=== PATIENT | female | born 1940 | race Caucasian/White ===

== ENCOUNTER 2017-02-12 10:35 | Inpatient (IN) | payer OTHER ==
[~2017-02-12] VITALS: Ht 147.3 cm; Wt 59.3 kg
[2017-02-12] MEDS ORDERED: ALBUTEROL/IPRATROPIUM (NEB) 3 ML AMP HHN STA (10:54)
[2017-02-12] MEDS ORDERED: predniSONE 20 MG TAB PO ONE (11:00)
--- NOTE | 2017-02-12 11:06 | ERA ---
ER Documentation Chief Complaint Date/Time DATE: 02/12/17 TIME: 11:05 Chief Complaint COUGH, SOB, PT ON ABX TREATMENT (RIVER METCALF PA-C) HPI Patient is a 76-year-old female presenting with her daughter who is a behavioral school counselors and seems reliable. Patient complains of a cough starting last week. Patient has seen a urgent care and was prescribed azithromycin Dosepak. Antibiotics last dose was today. Patient still complains of mild cough. Patient chief complaint is shortness of breath. Patient has a history of asthma. Patient has used albuterol 2 times a day once at 2:58 in the morning and the second time with albuterol use was at approximately 8 AM. Patient had temporary and moderate relief of symptoms. Patient has not done anything else relieve symptoms. Patient has never had an asthma exacerbation to this extent. Denies fever, sputum production, headache, pharyngitis, swelling, hot potato type voice, dysphasia, dysgeusia, dysarthria or chest pain. (RIVER METCALF PA-C) ROS All systems reviewed and are negative except as per history of present illness. (RIVER METCALF PA-C) Allergies Allergies: Coded Allergies: No Known Allergy (Unverified , 02/12/17) PMhx/Soc Medical and Surgical Hx: pt denies Medical Hx, pt denies Surgical Hx History of Surgery: No Anesthesia Reaction: No Hx Neurological Disorder: No Hx Respiratory Disorders: No Hx Cardiac Disorders: No Hx Psychiatric Problems: No Hx Miscellaneous Medical Probl: No Hx Alcohol Use: No Hx Substance Use: No Hx Tobacco Use: No Smoking Status: Never smoker (RIVER METCALF PA-C) Physical Exam Vitals Vital Signs Date Time Temp Pulse Resp B/P Pulse Ox O2 Delivery O2 Flow Rate FiO2 02/12/17 16:09 103 30 115/64 100 Room Air 02/12/17 15:23 98 21 96 21 02/12/17 13:19 105 160/82 100 Nasal Cannula 2.0 02/12/17 13:19 Nasal Cannula 2.0 02/12/17 13:19 Nasal Cannula 2 02/12/17 12:21 93 20 96 21 02/12/17 11:35 89 22 97 21 02/12/17 11:20 88 23 96 21 02/12/17 10:37 98.4 106 18 146/70 97 (CINDY,RAMOS DO) Physical Exam Const: 76-year-old appropriate appearing female presenting with her daughter who is the behavioral school counselors. Head: Atraumatic Eyes: Normal Conjunctiva ENT: Normal External Ears, Nose and Mouth. Neck: Full range of motion..~ No meningismus. Resp: Wheezing and expiratory crackles and all lung serrano bilaterally with predominance and upper lung serrano. Cardio: Regular rate and rhythm, no murmurs Abd: Soft, non tender, non distended. Normal bowel sounds Skin: No petechiae or rashes Back: No midline or flank tenderness Ext: No cyanosis, or edema Neur: Awake and alert Psych: Normal Mood and Affect (RIVER METCALF PA-C) Result Diagram: 02/12/17 1340 02/12/17 1340 Results 24 hrs Laboratory Tests Test 02/12/17 13:40 White Blood Count 10.610^3/ul Red Blood Count 4.6710^6/ul Hemoglobin 14.0g/dl Hematocrit 43.2% Mean Corpuscular Volume 92.5fl Mean Corpuscular Hemoglobin 30.0pg Mean Corpuscular Hemoglobin Concent 32.4g/dl Red Cell Distribution Width 13.1% Platelet Count 66126^3/UL Mean Platelet Volume 11.5fl Neutrophils % 55.3% Lymphocytes % 20.1% Monocytes % 3.6% Eosinophils % 19.4% Basophils % 1.2% Nucleated Red Blood Cells % 0.0/100WBC Neutrophils # 5.810^3/ul Lymphocytes # 2.110^3/ul Monocytes # 0.410^3/ul Eosinophils # 2.110^3/ul Basophils # 0.110^3/ul Nucleated Red Blood Cells # 0.010^3/ul Sodium Level 142mmol/L Potassium Level 4.6mmol/L Chloride Level 101mmol/L Carbon Dioxide Level 23mmol/L Anion Gap 23 Blood Urea Nitrogen 13mg/dl Creatinine 0.73mg/dl Glucose Level 138mg/dl Calcium Level 9.7mg/dl Total Bilirubin 0.4mg/dl Direct Bilirubin 0.00mg/dl Indirect Bilirubin 0.4mg/dl Aspartate Amino Transf (AST/SGOT) 43IU/L Alanine Aminotransferase (ALT/SGPT) 36IU/L Alkaline Phosphatase 99IU/L Troponin I < 0.012ng/ml Total Protein 8.2g/dl Albumin 4.8g/dl Globulin 3.40g/dl Albumin/Globulin Ratio 1.41 Current Medications Medications (Trade) Dose Ordered Sig/Bonnie Route PRN Reason Start Time Stop Time Status Last Admin Dose Admin Prednisone (Prednisone) 40 mg ONCE ONCE PO 02/12/17 11:00 02/12/17 11:06 DC 02/12/17 11:15 Albuterol/ Ipratropium (Duoneb) 3 ml ONCE STAT HHN 02/12/17 10:54 02/12/17 11:06 DC 02/12/17 11:18 Albuterol (Proventil 0.083% (Neb)) 2.5 mg STK-MED ONCE .ROUTE 02/12/17 11:27 02/12/17 11:28 DC Albuterol (Proventil 0.5% (Neb)) 10 mg ONCE STAT INH 02/12/17 11:28 02/12/17 11:30 DC 02/12/17 11:34 Albuterol 10 mg 10 mg ONCE STAT INH 02/12/17 12:22 02/12/17 12:24 DC 02/12/17 12:25 Sodium Chloride (NS) 1,000 ml @ 1,000 mls/hr Q1H ONCE IV 02/12/17 13:30 02/12/17 14:29 DC 02/12/17 13:53 Methylprednisolone Sodium Succinate 125 mg 125 mg ONCE STAT IV 02/12/17 13:24 02/12/17 13:25 DC 02/12/17 13:52 Magnesium Sulfate/ Dextrose (Magnesium Sulfate 1 Gm/D5W) 100 ml @ 100 mls/hr ONCE ONCE IVPB 02/12/17 14:00 02/12/17 14:59 DC 02/12/17 13:53 Albuterol (Proventil 0.5% (Neb)) 10 mg ONCE STAT NEB 02/12/17 14:48 02/12/17 14:50 DC 02/12/17 15:23 Ipratropium [place] 0.5 mg 0.5 mg ONCE STAT NEB 02/12/17 14:48 02/12/17 14:50 DC 02/12/17 15:23 Sodium Chloride (NS) 1,000 ml @ 80 mls/hr [id number] IV 02/12/17 16:27 02/13/17 04:56 Ondansetron HCl (Zofran Inj) 4 mg BRIDGE ORDER PRN IV NAUSEA AND/OR VOMITING 02/12/17 16:30 02/13/17 16:29 Acetaminophen (Tylenol Tab) 650 mg ER BRIDGE PRN PO MILD PAIN/FEVER 02/12/17 16:30 02/13/17 16:29 (RAMOS WHITE DO) Procedures/MDM Patient is a 76-year-old female with history of asthma with cough and shortness of breath. Patient says she has asthma attack has never had asthma daily as before. Patient's vitals are stable and the airway is open. Patient's able to speak without much distress. There are no intercostal retractions at this time. Patient has used albuterol twice today without sustained relief. We will go ahead and treat the patient with 40 mg of oral prednisone and a treatment of oxygen/albuterol/ipratropium. Will obtain an x-ray for possible infectious cause of exacerbation. will reevaluate patient once treatment is completed. Chest x-ray showed no cardio or pulmonary acute pathology. I do not suspect a bacterial infection of the lungs or airway tract at this time. Upon reevaluation the patient's pulmonary status by physical exam has not improved. A second administration of nebulized albuterol and oxygen was ordered and administered. Upon subsequent evaluation patient's pulmonary status began has not improved with examination. Have talked to Dr. Rea he agrees that a workup and possible admission is the next step. We will go ahead and draw a CBC, CMP and a urinalysis. We will present the patient for possible admission. (RIVER METCALF PA-C) Departure Condition: Stable RIVER METCALF PA-C Feb 12, 2017 11:06 RAMOS WHITE DO Feb 12, 2017 16:28
[2017-02-12] MEDS ORDERED: ALBUTEROL 0.083% (NEB) 2.5 MG/3 ML AMP ONE (11:27)
[2017-02-12] MEDS ORDERED: ALBUTEROL 0.5% (NEB) 2.5 MG/0.5 ML AMP INH STA ×2 (11:28→12:22)
--- NOTE | 2017-02-12 11:31 | RADRPT ---
PROCEDURE: XR Chest. CLINICAL INDICATION: Asthma TECHNIQUE: AP view of the chest was performed. COMPARISON: None. FINDINGS: The lungs are clear. The lung volumes are normal. The heart size is normal. The osseous structure s are intact. IMPRESSION: No radiographic evidence for acute cardiopulmonary disease. RPTAT: QQ .Mabel Scherer MD, Date Time Electronically viewed and signed by .Mabel Scherer MD, on 02/12/2017 11:31 .M/
[2017-02-12] MEDS ORDERED: METHYLPREDNISOLONE 125 MG INJ IV STA (13:24)
[2017-02-12] MEDS ORDERED: SOD CHLORIDE 0.9% 1,000 ML IV ONE (13:30)
[2017-02-12 13:52] LABS: ADD SCAN DIFF NO
[2017-02-12 13:57] LABS: ABNORMAL IP MESSAGE 1; BASOPHIL # 0.1 10^3/ul (0.0-0.1); BASOPHILS % 1.2 % (0.0-2.0); EOSINOPHILS # 2.1 10^3/ul (0.0-0.5); EOSINOPHILS % 19.4 % (0.0-7.0); HEMATOCRIT 43.2 % (37.0-47.0); LYMPHOCYTES # 2.1 10^3/ul (0.8-2.9); LYMPHOCYTES % 20.1 % (15.0-51.0); MEAN CORPUSCULAR HGB CONC 32.4 g/dl (32.0-37.0); MEAN CORPUSCULAR VOLUME 92.5 fl (82.0-101.0); MEAN PLATELET VOLUME 11.5 fl (7.4-10.4); MONOCYTE # 0.4 10^3/ul (0.3-0.9); MONOCYTES % 3.6 % (0.0-11.0); NEUTROPHIL # 5.8 10^3/ul (1.6-7.5); NEUTROPHILS % 55.3 % (39.0-77.0); PLATELET COUNT 214 10^3/UL (140-415); RED BLOOD COUNT 4.67 10^6/ul (4.20-5.40); RED CELL DISTRIBUTION WIDTH 13.1 % (11.5-14.5); WHITE BLOOD COUNT 10.6 10^3/ul (4.8-10.8)
[2017-02-12] MEDS ORDERED: MAGNESIUM SULFATE 1 GM/D5W 100 ML IVPB ONE (14:00)
[2017-02-12] MEDS ORDERED: IPRATROPIUM (NEB) 0.5 MG/2.5 ML AMP NEB STA (14:48)
[2017-02-12] MEDS ORDERED: ALBUTEROL 0.5% (NEB) 2.5 MG/0.5 ML AMP NEB STA (14:48)
[2017-02-12 15:08] LABS: ALBUMIN 4.8 g/dl (3.3-4.9)
[2017-02-12 15:09] LABS: POTASSIUM 4.6 mmol/L (3.5-5.1)
[2017-02-12 15:11] LABS: ALBUMIN/GLOBULIN RATIO 1.41; BILIRUBIN,INDIRECT 0.4 mg/dl (0-1.1); BILIRUBIN,TOTAL 0.4 mg/dl (0.2-1.3); CREATININE 0.73 mg/dl (0.44-1.00); TOTAL PROTEIN 8.2 g/dl (6.1-8.1)
[2017-02-12 15:12] LABS: CALCIUM 9.7 mg/dl (8.4-10.2)
[2017-02-12] MEDS ORDERED: SOD CHLORIDE 0.9% 1,000 ML IV SCH (16:27)
[2017-02-12] MEDS ORDERED: ONDANSETRON 4 MG INJ IV PRN ×2 (16:30→17:00)
[2017-02-12] MEDS ORDERED: ACETAMINOPHEN 325 MG TAB PO PRN ×2 (16:30→17:00)
--- NOTE | 2017-02-12 16:32 | ERA ---
ER Documentation Chief Complaint Date/Time DATE: 02/12/17 TIME: 16:30 Chief Complaint COUGH, SOB, PT ON ABX TREATMENT HPI This is a 76-year-old female presents to the emergency room for evaluation of a cough and shortness of breath. This patient did see her primary care physician who prescribed her an unknown antibiotic. She does have an inhaler at home and states that last night her shortness of breath got worse. She denies any fevers or chills associated with this and came to the ER for evaluation. She is denying any relieving factors for her symptoms. ROS All systems reviewed and are negative except as per history of present illness. Allergies Allergies: Coded Allergies: No Known Allergy (Unverified , 02/12/17) PMhx/Soc Medical and Surgical Hx: pt denies Medical Hx, pt denies Surgical Hx History of Surgery: No Anesthesia Reaction: No Hx Neurological Disorder: No Hx Respiratory Disorders: No Hx Cardiac Disorders: No Hx Psychiatric Problems: No Hx Miscellaneous Medical Probl: No Hx Alcohol Use: No Hx Substance Use: No Hx Tobacco Use: No Smoking Status: Never smoker Physical Exam Vitals Vital Signs Date Time Temp Pulse Resp B/P Pulse Ox O2 Delivery O2 Flow Rate FiO2 02/12/17 16:09 103 30 115/64 100 Room Air 02/12/17 15:23 98 21 96 21 02/12/17 13:19 105 160/82 100 Nasal Cannula 2.0 02/12/17 13:19 Nasal Cannula 2.0 02/12/17 13:19 Nasal Cannula 2 02/12/17 12:21 93 20 96 21 02/12/17 11:35 89 22 97 21 02/12/17 11:20 88 23 96 21 02/12/17 10:37 98.4 106 18 146/70 97 Physical Exam INITIAL VITAL SIGNS: Reviewed by me GENERAL: The patient is well developed and appropriate for usual state of health in no apparent distress HEENT: Pupils equal, round, and reactive to light. EOMI. There is no scleral icterus. NECK: C-spine is soft and supple, there is no meningismus. There is no cervical lymphadenopathy. LUNGS: Diffuse wheezing auscultated in upper and lower lobes HEART: Tachycardic, no murmurs, clicks, rubs or gallops. ABDOMEN: Subcostal retractions, soft, non-tender, non-distended. There are bowel sounds in all four quadrants. No rebound or guarding. EXTREMITIES: There is no peripheral cyanosis or edema. No focal swelling or erythema. NEUROLOGICAL: The patient moves all four extremities with 5/5 strength. Cranial nerves II - XII are intact. Normal gait. Alert and oriented SKIN: There is no apparent rash or petechiae. HEME/LYMPHATIC: There is no evidence of excessive bruising or lymphedema. PSYCHIATRIC: The patient does not appear anxious or depressed. Result Diagram: 02/12/17 1340 02/12/17 1340 Results 24 hrs Laboratory Tests Test 02/12/17 13:40 White Blood Count 10.610^3/ul Red Blood Count 4.6710^6/ul Hemoglobin 14.0g/dl Hematocrit 43.2% Mean Corpuscular Volume 92.5fl Mean Corpuscular Hemoglobin 30.0pg Mean Corpuscular Hemoglobin Concent 32.4g/dl Red Cell Distribution Width 13.1% Platelet Count 16473^3/UL Mean Platelet Volume 11.5fl Neutrophils % 55.3% Lymphocytes % 20.1% Monocytes % 3.6% Eosinophils % 19.4% Basophils % 1.2% Nucleated Red Blood Cells % 0.0/100WBC Neutrophils # 5.810^3/ul Lymphocytes # 2.110^3/ul Monocytes # 0.410^3/ul Eosinophils # 2.110^3/ul Basophils # 0.110^3/ul Nucleated Red Blood Cells # 0.010^3/ul Sodium Level 142mmol/L Potassium Level 4.6mmol/L Chloride Level 101mmol/L Carbon Dioxide Level 23mmol/L Anion Gap 23 Blood Urea Nitrogen 13mg/dl Creatinine 0.73mg/dl Glucose Level 138mg/dl Calcium Level 9.7mg/dl Total Bilirubin 0.4mg/dl Direct Bilirubin 0.00mg/dl Indirect Bilirubin 0.4mg/dl Aspartate Amino Transf (AST/SGOT) 43IU/L Alanine Aminotransferase (ALT/SGPT) 36IU/L Alkaline Phosphatase 99IU/L Troponin I < 0.012ng/ml Total Protein 8.2g/dl Albumin 4.8g/dl Globulin 3.40g/dl Albumin/Globulin Ratio 1.41 Current Medications Medications (Trade) Dose Ordered Sig/Bonnie Route PRN Reason Start Time Stop Time Status Last Admin Dose Admin Prednisone (Prednisone) 40 mg ONCE ONCE PO 02/12/17 11:00 02/12/17 11:06 DC 02/12/17 11:15 Albuterol/ Ipratropium (Duoneb) 3 ml ONCE STAT HHN 02/12/17 10:54 02/12/17 11:06 DC 02/12/17 11:18 Albuterol (Proventil 0.083% (Neb)) 2.5 mg STK-MED ONCE .ROUTE 02/12/17 11:27 02/12/17 11:28 DC Albuterol (Proventil 0.5% (Neb)) 10 mg ONCE STAT INH 02/12/17 11:28 02/12/17 11:30 DC 02/12/17 11:34 Albuterol 10 mg 10 mg ONCE STAT INH 02/12/17 12:22 02/12/17 12:24 DC 02/12/17 12:25 Sodium Chloride (NS) 1,000 ml @ 1,000 mls/hr Q1H ONCE IV 02/12/17 13:30 02/12/17 14:29 DC 02/12/17 13:53 Methylprednisolone Sodium Succinate 125 mg 125 mg ONCE STAT IV 02/12/17 13:24 02/12/17 13:25 DC 02/12/17 13:52 Magnesium Sulfate/ Dextrose (Magnesium Sulfate 1 Gm/D5W) 100 ml @ 100 mls/hr ONCE ONCE IVPB 02/12/17 14:00 02/12/17 14:59 DC 02/12/17 13:53 Albuterol (Proventil 0.5% (Neb)) 10 mg ONCE STAT NEB 02/12/17 14:48 02/12/17 14:50 DC 02/12/17 15:23 Ipratropium [place] 0.5 mg 0.5 mg ONCE STAT NEB 02/12/17 14:48 02/12/17 14:50 DC 02/12/17 15:23 Sodium Chloride (NS) 1,000 ml @ 80 mls/hr [id number] IV 02/12/17 16:27 02/13/17 04:56 Ondansetron HCl (Zofran Inj) 4 mg BRIDGE ORDER PRN IV NAUSEA AND/OR VOMITING 02/12/17 16:30 02/13/17 16:29 Acetaminophen (Tylenol Tab) 650 mg ER BRIDGE PRN PO MILD PAIN/FEVER 02/12/17 16:30 02/13/17 16:29 Procedures/MDM EKG: Rate/Rhythm: [Normal Sinus Rhythm] QRS, ST, T-waves: [No changes consistent w/ acute ischemia] Impression: [No evidence of ischemia or arrhythmia] Chest X-ray 1V Interpreted by me: Soft Tissue: No acute abnormalities Bones: No acute abnormalities Mediastinum/Cardiac Silhouette/Lungs: [No acute abnormalities] This 76-year-old female presents to the emergency room for evaluation of shortness of breath. When I evaluated her she did have significant wheezing. She was given a breathing treatment in our fast track area and I was transferred over to my care. The patient was subsequently given 2 additional breathing treatments in the main emergency room. She was given Solu-Medrol, and 1 g of magnesium. The patient was ambulating without oxygen however she became extremely short of breath. She was not hypoxic however given her respiratory status and diffuse wheezing she will be placed in for observation at this time for continue breathing treatments and further monitoring. The patient will be placed on her MedSurg floor under the care of Dr. casey Mendes Diagnosis: Primary Impression: Acute exacerbation of COPD with asthma Additional Impression: Cough Condition: Stable RAMOS WHITE DO Feb 12, 2017 16:32
[2017-02-12] MEDS: ALBUTEROL/IPRATROPIUM (NEB) 3 ML AMP HHN SCH ×2 (17:00→20:58)
[2017-02-12] MEDS ORDERED: ALBUTEROL/IPRATROPIUM (NEB) 3 ML AMP HHN PRN (17:00)
[2017-02-12] MEDS: LEVOFLOXACIN 500MG/D5W (PMX) 100 ML IVPB SCH (17:19)
[2017-02-12 18:30] VITALS: BP 152/72; PULSE 111; RESP 25
--- NOTE | 2017-02-12 18:30 | HP ---
DATE OF ADMISSION: 02/12/2017 PRESENTING COMPLAINT: Cough and shortness of breath. HISTORY OF PRESENTING COMPLAINT: Ms. Kristian Vargas is a 76-year-old female who was brought into [facility] emergency room by her family because of worsening shortness of breath. The patient reports that her symptoms have been going on for about a week now and have slowly been worsening. The patient wa s seen by outpatient physician and started on oral antibiotics. She has a history of asthma and she was also prescribed breathing treatments and inhalers. These, however, did not improve her symptom s and last night her symptoms got worse; the family brought her in. There has been no fever, but sh siri does have cough productive of yellowish sputum. There is no blood in her sputum. She is not vomi ting. There is no blood in her stool. She has no history of black stools. She has a history of pa ssing out episodes. She denies palpitations. She has had similar episodes in the past. PAST MEDICAL HISTORY: Positive for asthma only, no other medical or surgical history. ALLERGIES: NO KNOWN DRUG ALLERGIES. SOCIAL HISTORY: Denies tobacco, alcohol or illicit drug use. She has never smoked. REVIEW OF SYSTEMS: A 12-point review of system was done. Pertinent findings are as noted. PHYSICAL EXAMINATION: VITAL SIGNS: She was tachycardic and her blood pressure maximum was 160/82 when she first came in. Last night she was also requiring oxygen via nasal cannula at 2 liters a minute. At this time, her blood pressure is better at 115/64, saturations 100% on room air, but she remains tachypneic and kimberly horner has diffuse wheezing. GENERAL: She was alert and oriented, in mild respiratory distress. HEENT: Head is normocephalic. Pupils are equal and reactive. Mucous membranes are moist. Posteri or pharynx clear of exudate. NECK: Supple. CHEST: Diffuse wheezing with reduced air entry bilaterally without crackles or rales. CARDIOVASCULAR: Heart sounds tachycardia, no murmurs. ABDOMEN: Soft, nontender, nondistended, normoactive bowel sounds. EXTREMITIES: Negative for edema. NEUROLOGIC: She has no focal deficits. SKIN: Devoid of rash or jaundice. PSYCHIATRIC: She was calm, cooperative with exam. LABORATORY VALUES: CBC was unremarkable with eosinophilia consistent with asthma and her chemistry also had some abnormalities, but nothing significant. Her first troponin is negative. Urinalysis i s pending. IMAGING: I reviewed her chest x-ray and there is no acute cardiopulmonary abnormality on that. I a lso reviewed her EKG and it was not suggestive of an acute ischemic event. IMPRESSION: A 76-year-old female who presents for a week history of cough and shortness of breath, who has failed outpatient antibiotic therapy managed for the followin. Acute asthma exacerbation. 2. Possible acute bronchitis. 3. Elevated blood pressure without prior history of hypertension. PLAN: Admit the patient to medical surgical floor, commence scheduled bronchodilator therapy, rishabh nue antibiotic intravenously in-house empirically. We will also rule out an acute coronary syndrome and get a 2D echo. The patient will also be commenced on intravenous steroids and we will add inha led steroids if indicated. This plan of care has been discussed with her. Questions have been answered. For prophylaxis, she will be maintained on Lovenox and Pepcid. Dictated By: CLEMENTINE SCHAFER MD, BA/ALAINA Conf#: [id number] DID#: [id number]
[2017-02-12 18:50] VITALS: Ht 147.3 cm; Wt 59.3 kg
[2017-02-12] MEDS: METHYLPREDNISOLONE 40 MG INJ IV SCH (21:38)
[2017-02-12] MEDS: DOCUSATE SODIUM 100 MG CAP PO SCH (21:38)
[2017-02-12] MEDS: FAMOTIDINE 20 MG TAB PO SCH (21:38)
[2017-02-12 22:51] LABS: CREATINE KINASE 175 IU/L (23-200)
[2017-02-12 23:04] LABS: CK-MB 4.63 ng/ml (0.0-2.4)
[2017-02-12 23:11] LABS: TROPONIN-I < 0.012 ng/ml (0.00-0.12)
[2017-02-13] MEDS: ALBUTEROL/IPRATROPIUM (NEB) 3 ML AMP HHN SCH ×6 (00:47→20:16)
[2017-02-13] MEDS ORDERED: GEMF600T60 PO (01:48)
[2017-02-13] MEDS ORDERED: METF500T4 PO (01:48)
[2017-02-13] MEDS ORDERED: LEVO50TA74 PO (01:48)
[2017-02-13] MEDS ORDERED: LORA10TA3 PO (01:48)
[2017-02-13] MEDS ORDERED: GLUCAGON 1 MG INJ IM PRN (06:00)
[2017-02-13] MEDS ORDERED: GLUCOSE GEL 15 GRAM TUBE BUCCAL PRN (06:00)
[2017-02-13] MEDS ORDERED: GLUCOSE GEL 15 GRAM TUBE PO PRN ×2 (06:00)
[2017-02-13] MEDS ORDERED: DEXTROSE 50% 50 ML SYRINGE IV PRN ×2 (06:00)
[2017-02-13] MEDS: METHYLPREDNISOLONE 40 MG INJ IV SCH (06:32)
[2017-02-13] MEDS: LEVOTHYROXINE 50 MCG TAB PO SCH (06:32)
[2017-02-13 07:40] VITALS: BP 113/59; RESP 20
[2017-02-13] MEDS: INSULIN ASPART [NOVOLOG] 3 ML PEN SC SCH ×4 (07:55→21:00)
[2017-02-13] MEDS ORDERED: metFORMIN 500 MG TAB PO SCH (08:00)
[2017-02-13 08:17] LABS: ADD SCAN DIFF NO
[2017-02-13 08:26] LABS: BASOPHILS % 0.2 % (0.0-2.0); EOSINOPHILS % 0.1 % (0.0-7.0); HEMATOCRIT 39.9 % (37.0-47.0); HEMOGLOBIN 12.5 g/dl (12.0-16.0); LYMPHOCYTES # 1.5 10^3/ul (0.8-2.9); LYMPHOCYTES % 10.9 % (15.0-51.0); MEAN CORPUSCULAR HGB CONC 31.3 g/dl (32.0-37.0); MEAN CORPUSCULAR VOLUME 92.6 fl (82.0-101.0); MEAN PLATELET VOLUME 10.1 fl (7.4-10.4); MONOCYTE # 0.6 10^3/ul (0.3-0.9); MONOCYTES % 4.2 % (0.0-11.0); NEUTROPHIL # 11.6 10^3/ul (1.6-7.5); NEUTROPHILS % 83.8 % (39.0-77.0); PLATELET COUNT 241 10^3/UL (140-415); RED BLOOD COUNT 4.31 10^6/ul (4.20-5.40); RED CELL DISTRIBUTION WIDTH 13.3 % (11.5-14.5); WHITE BLOOD COUNT 13.8 10^3/ul (4.8-10.8)
[2017-02-13 08:35] LABS: CREATINE KINASE 147 IU/L (23-200)
[2017-02-13 08:46] LABS: CK-MB 4.46 ng/ml (0.0-2.4)
[2017-02-13 08:56] LABS: TROPONIN-I < 0.012 ng/ml (0.00-0.12)
[2017-02-13] MEDS: LORATADINE 10 MG TAB PO SCH (09:09)
[2017-02-13] MEDS: DOCUSATE SODIUM 100 MG CAP PO SCH (09:09)
[2017-02-13] MEDS: FAMOTIDINE 20 MG TAB PO SCH ×2 (09:09→21:18)
[2017-02-13] MEDS: ENOXAPARIN 40 MG/0.4 ML SYG SC SCH (09:10)
[2017-02-13] MEDS ORDERED: GUAIFENESIN/CODEINE 5ML CUP PO PRN (10:30)
--- NOTE | 2017-02-13 10:37 | PN ---
Date/Time of Note Date/Time of Note DATE: 02/13/17 TIME: 10:32 Assessment/Plan VTE Prophylaxis VTE Prophylaxis Intervention: LMWH Lines/Catheters IV [facility] Saline Lock Assessment/Plan Chief Complaint/Hosp Course S-little less wheezing. But not walking yet. Recent cough wheezing yellow- green expectoration with no hemoptysis. No edema travel or chest pain. Sore throat but no loss of weight or change in appetite. O- tachypnea PE No pallor adenopathy some slight right pre-vallecular swelling but nontender Reg, mild tachycardia Expiratory wheezing bilat. Do not appreciate any inspiratory wheezing. Positive tachypnea. Benign No edema, or Homans sign A/P 1. Acute hypoxic respiratory failure. Stable cont steroids 2. Acute exacerbation of asthma. Ro stridor. 3. Probable chr asthma/obstructive lung disease. Outpt PFTs. 4. Possible viral bronchitis. Problems: Exam/Review of Systems Vital Signs Vitals Vital Signs Date Time Temp Pulse Resp B/P Pulse Ox O2 Delivery O2 Flow Rate FiO2 02/13/17 08:14 2.0 02/13/17 08:14 88 18 96 Nasal Cannula 02/13/17 07:40 98.1 113/59 02/12/17 15:23 21 Intake and Output 02/12/17 02/12/17 02/13/17 15:00 23:00 07:00 Intake Total 760 ml 150 ml Balance 760 ml 150 ml Results Result Diagram: 02/13/17 0715 02/12/17 1340 Results 24 hrs Laboratory Tests Test 02/12/17 13:40 02/12/17 22:36 02/13/17 07:15 02/13/17 07:48 White Blood Count 10.6 13.8 #H Red Blood Count 4.67 4.31 Hemoglobin 14.0 12.5 Hematocrit 43.2 39.9 Mean Corpuscular Volume 92.5 92.6 Mean Corpuscular Hemoglobin 30.0 29.0 Mean Corpuscular Hemoglobin Concent 32.4 31.3 L Red Cell Distribution Width 13.1 13.3 Platelet Count 214 241 Mean Platelet Volume 11.5 H 10.1 Neutrophils % 55.3 83.8 H Lymphocytes % 20.1 10.9 L Monocytes % 3.6 4.2 Eosinophils % 19.4 H 0.1 Basophils % 1.2 0.2 Nucleated Red Blood Cells % 0.0 0.0 Neutrophils # 5.8 11.6 H Lymphocytes # 2.1 1.5 Monocytes # 0.4 0.6 Eosinophils # 2.1 H 0.0 Basophils # 0.1 0.0 Nucleated Red Blood Cells # 0.0 0.0 Sodium Level 142 Potassium Level 4.6 Chloride Level 101 Carbon Dioxide Level 23 Anion Gap 23 H Blood Urea Nitrogen 13 Creatinine 0.73 Glucose Level 138 Calcium Level 9.7 Total Bilirubin 0.4 Direct Bilirubin 0.00 Indirect Bilirubin 0.4 Aspartate Amino Transf (AST/SGOT) 43 Alanine Aminotransferase (ALT/SGPT) 36 Alkaline Phosphatase 99 Troponin I < 0.012 < 0.012 < 0.012 Total Protein 8.2 H Albumin 4.8 Globulin 3.40 H Albumin/Globulin Ratio 1.41 Magnesium Level 2.3 Creatine Kinase 175 147 Creatine Kinase Index 2.6 3.0 Creatinine Kinase MB (Mass) 4.63 H 4.46 H Bedside Glucose 136 Medications Medications Current Medications Levofloxacin/ Dextrose (Levaquin 500mg/ D5W 100 ml (Pmx)) 100 ml @ 100 mls/hr Q24H IVPB Last administered on 02/12/17 17:19; Admin Dose 100 MLS/HR; Start 02/12/17 at 17:00 Methylprednisolone Sodium Succinate (Solu-Medrol) 40 mg Q8 IV Last administered on 02/13/17 06:32; Admin Dose 40 MG; Start 02/12/17 at 22:00 Ondansetron HCl (Zofran Inj) 4 mg Q6H PRN IV NAUSEA AND/OR VOMITING; Start 02/12 at 17:00 Acetaminophen (Tylenol Tab) 650 mg Q6H PRN PO PAIN AND OR ELEVATED TEMP; Start 02/12/17 at 17:00 Famotidine (Pepcid) 20 mg BID PO Last administered on 02/13/17 09:09; Admin Dose 20 MG; Start 02/12/17 at 21:00 Enoxaparin Sodium (Lovenox) 40 mg DAILY SC Last administered on 02/13/17 09:10 ; Admin Dose 40 MG; Start 02/13/17 at 09:00 Loratadine (Claritin) 10 mg DAILY PO Last administered on 02/13/17 09:09; Admin Dose 10 MG; Start 02/13/17 at 09:00 Diagnostic Test (Pha) (Accu-Chek) 1 ea 02 XX ; Start 02/14/17 at 02:00 Miscellaneous Information 1 ea NOTE XX ; Start 02/13/17 at 06:00 Glucose (Glutose) 15 gm Q15M PRN PO DECREASED GLUCOSE; Start 02/13/17 at 06:00 Glucose (Glutose) 22.5 gm Q15M PRN PO DECREASED GLUCOSE; Start 02/13/17 at 06: 00 Dextrose (D50w Syringe) 25 ml Q15M PRN IV DECREASED GLUCOSE; Start 02/13/17 at 06:00 Dextrose (D50w Syringe) 50 ml Q15M PRN IV DECREASED GLUCOSE; Start 02/13/17 at 06:00 Glucagon (Glucagen) 1 mg Q15M PRN IM DECREASED GLUCOSE; Start 02/13/17 at 06:00 Glucose (Glutose) 15 gm Q15M PRN BUCCAL DECREASED GLUCOSE; Start 02/13/17 at 06 :00 Guaifenesin/ Codeine Phosphate (Robitussin Ac Liquid Cup) 10 ml Q4H PRN PO COUGH; Start 02/13/17 at 10:30 HEATHER MANE MD Feb 13, 2017 10:37
[2017-02-13] MEDS ORDERED: RACEPINEPHRINE 2.25%(NEB) 0.5 ML AMP HHN ONE (12:00)
[2017-02-13] MEDS ORDERED: METHYLPREDNISOLONE 40 MG INJ IV SCH (14:00)
--- NOTE | 2017-02-13 15:16 | CONS ---
Date/Time of Note Date/Time of Note DATE: 02/13/17 TIME: 15:13 Assessment/Plan Assessment/Plan Additional Assessment/Plan Chest x-ray was reviewed from yesterday which is showing hyperinflation. With depressed diaphragms. Assessment recommendations; 1. Patient admitted for asthma exacerbation with acute bronchitis with interval improvement. 2. History of diabetes with hyperglycemia, likely exacerbated by systemic steroids. 3. History of diabetes diabetes, hypothyroidism. Continue current treatment. Monitor blood sugars. Consultation Date/Type/Reason Admit Date/Time Feb 12, 2017 at 16:28 Date of Consultation: Feb 13, 2017 Type of Consultation: Pulmonary Reason for Consultation Pulmonary consultation requested for evaluation of asthma exacerbation. History presenting any; patient is a pleasant 76-year-old lady who came into the emergency room yesterday with a weeklong history of cough, sputum production wheezing and shortness of breath. Patient also was seen in the outpatient setting and according to her the medication did not help. The patient prior to the onset of the symptoms was doing very well and denies any chronic respiratory symptoms whatsoever. Has any high fever, chills body aches or myalgias. Past medical history; 1. Asthma 2. IVs 3. Hypothyroidism 4. Hyperlipidemia 5. Bilateral cataract surgery. Allergies; are none. Social history; never smoked, no history of alcohol or drug abuse. Family history; she is single she has 3 children. 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 Review of systems; denies any headache, visual changes. Any sinus symptoms. Any dysphagia, odynophagia, chest pain, shortness of breath has improved. Denies any hemoptysis. Come to the very scant clear sputum production. Denies any abdominal pain, nausea, vomiting. Denies any acid reflux symptoms. Denies any melena, hematochezia, any orthopnea PND. Denies any skin changes. Denies any urinary symptoms. General exam; elderly lady, awake alert currently in no distress. Social History Smoking Status: Never smoker Exam/Review of Systems Vital Signs Vitals Vital Signs Date Time Temp Pulse Resp B/P Pulse Ox O2 Delivery O2 Flow Rate FiO2 02/13/17 12:26 84 18 98 Nasal Cannula 2.0 02/13/17 07:40 98.1 113/59 02/12/17 15:23 21 Intake and Output 4/902/12/17 02/13/17 15:00 23:00 07:00 Intake Total 760 ml 150 ml Balance 760 ml 150 ml Exam HEENT exam is; supple neck, no JVD. No lymphadenopathy. Midline trachea. No thyromegaly. Patient has multiple missing teeth. Has bilateral intraocular lens implant. Pharynx is clear. No thyromegaly. No neck bruits. Chest examination; bilateral wheezing. S1-S2 audible, no murmurs. Regular rhythm. Abdomen examination; soft, nontender. Nondistended. No organomegaly. Bowel sounds audible. Extremity exam is; no peripheral edema. Pulses 1+ bilaterally. No clubbing. VISUAL MERCHANDISER examination; cranial nerves are grossly intact. No focal motor deficit. Results Result Diagram: 02/13/17 0715 02/12/17 1340 Results 24 hrs Laboratory Tests Test 02/12/17 22:36 02/13/17 07:15 02/13/17 07:48 02/13/17 12:23 Magnesium Level 2.3 Creatine Kinase 175 147 Creatine Kinase Index 2.6 3.0 Creatinine Kinase MB (Mass) 4.63 H 4.46 H Troponin I < 0.012 < 0.012 White Blood Count 13.8 #H Red Blood Count 4.31 Hemoglobin 12.5 Hematocrit 39.9 Mean Corpuscular Volume 92.6 Mean Corpuscular Hemoglobin 29.0 Mean Corpuscular Hemoglobin Concent 31.3 L Red Cell Distribution Width 13.3 Platelet Count 241 Mean Platelet Volume 10.1 Neutrophils % 83.8 H Lymphocytes % 10.9 L Monocytes % 4.2 Eosinophils % 0.1 Basophils % 0.2 Nucleated Red Blood Cells % 0.0 Neutrophils # 11.6 H Lymphocytes # 1.5 Monocytes # 0.6 Eosinophils # 0.0 Basophils # 0.0 Nucleated Red Blood Cells # 0.0 Bedside Glucose 136 430 *H Medications Medications Current Medications Levofloxacin/ Dextrose (Levaquin 500mg/ D5W 100 ml (Pmx)) 100 ml @ 100 mls/hr Q24H IVPB Last administered on 02/12/17t 17:19; Admin Dose 100 MLS/HR; Start 02/12/17 at 17:00 Ondansetron HCl (Zofran Inj) 4 mg Q6H PRN IV NAUSEA AND/OR VOMITING; Start 02/12 at 17:00 Acetaminophen (Tylenol Tab) 650 mg Q6H PRN PO PAIN AND OR ELEVATED TEMP; Start 02/12/17 at 17:00 Famotidine (Pepcid) 20 mg BID PO Last administered on 02/13/17 09:09; Admin Dose 20 MG; Start 02/12/17 at 21:00 Enoxaparin Sodium (Lovenox) 40 mg DAILY SC Last administered on 02/13/17 09:10 ; Admin Dose 40 MG; Start 02/13/17 at 09:00 Loratadine (Claritin) 10 mg DAILY PO Last administered on 02/13/17 09:09; Admin Dose 10 MG; Start 02/13/17 at 09:00 Diagnostic Test (Pha) (Accu-Chek) 1 ea 02 XX ; Start 02/14/17 at 02:00 Miscellaneous Information 1 ea NOTE XX ; Start 02/13/17 at 06:00 Glucose (Glutose) 15 gm Q15M PRN PO DECREASED GLUCOSE; Start 02/13/17 at 06:00 Glucose (Glutose) 22.5 gm Q15M PRN PO DECREASED GLUCOSE; Start 02/13/17 at 06: 00 Dextrose (D50w Syringe) 25 ml Q15M PRN IV DECREASED GLUCOSE; Start 02/13/17 at 06:00 Dextrose (D50w Syringe) 50 ml Q15M PRN IV DECREASED GLUCOSE; Start 02/13/17 at 06:00 Glucagon (Glucagen) 1 mg Q15M PRN IM DECREASED GLUCOSE; Start 02/13/17 at 06:00 Glucose (Glutose) 15 gm Q15M PRN BUCCAL DECREASED GLUCOSE; Start 02/13/17 at 06 :00 Guaifenesin/ Codeine Phosphate (Robitussin Ac Liquid Cup) 10 ml Q4H PRN PO COUGH; Start 02/13/17 at 10:30 Methylprednisolone Sodium Succinate (Solu-Medrol) 90 mg Q8 IV ; Start 02/13/17 at 14:00 MICHELLE ROOT Feb 13, 2017 15:16
[2017-02-13] MEDS: METHYLPREDNISOLONE 125 MG INJ IV SCH ×2 (15:28→21:34)
--- NOTE | 2017-02-13 17:06 | RADRPT ---
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 Physician: CLEMENTINE SCHAFER Quality: Adequate Procedures: Transthoracic echocardiogram with complete 2D, M-Mode, and doppler examination. Indications: RESP. DISTRESS. 2D/M Mode Doppler Measurement Value Normal Ranges Measurement Value Normal Ranges LVIDd 2D 3.8 3.5 - 5.6 cm AV Peak Asif 1.4 m/sec LVIDs 2D 2.7 2.1 - 4.1 cm AV Peak PG 7.6 mmHg LVPWd 2D 1.0 0.6 - 1.1 cm LVOT Peak Asif 1.1 m/sec IVSd 2D 1.0 0.6 - 1.1 cm LVOT Peak PG 4.9 mmHg AoR Diam 2D 2.3 2.0 - 3.7 cm MV E Peak Asif 0.8 m/sec EDV 2D 61.6 cm3 MV A Peak Asif 1.0 m/sec ESV 2D 19.8 cm3 MV E/A 0.8 MV Decel Time 181 msec MV Decel [place] 5 MV E/A 0.8 Findings Left Ventricle: Normal left ventricular systolic function. Normal left ventricular cavity size. Normal left ventricular wall thickness. Ejection fraction is visually estimated at 6065 %. Tissue Doppler/Mitral Doppler indices are consistent with impaired relaxation (Stage I diastolic dysfunction). Right Ventricle: Normal right ventricular size. Normal right ventricular systolic function. Left Atrium: The left atrium is normal in size. Right Atrium: The right atrium is normal in size. Mitral Valve: Mild mitral leaflet calcification. Mild mitral annular calcification. Trace mitral regurgitation. Aortic Valve: No significant aortic stenosis or insufficiency. Tricuspid Valve: Tricuspid valve not well visualized. There is trace tricuspid regurgitation. Pulmonic Valve: There is trace pulmonic regurgitation. Pericardium: There is an anterior echo free space consistent with epicardial fat pad. Aorta: Normal aortic root. IVC: Normal size and normal respiratory collapse consistent with normal right atrial pressure. Conclusions 1.Normal left ventricular systolic function. Normal left ventricular cavity size. Normal left ventricular wall thickness. Ejection fraction is visually estimated at 60-65 %. Tissue Doppler/Mitral Doppler indices are consistent with impaired relaxation (Stage I diastolic dysfunction). 2.Mild mitral leaflet calcification. Mild mitral annular calcification. Trace mitral regurgitation. 3.No significant aortic stenosis or insufficiency. 4.Tricuspid valve not well visualized. There is trace tricuspid regurgitation. 5.There is trace pulmonic regurgitation. Electronically Signed By: Hugh Lopez 13-Feb-2017 17:05:23 -0700 Patient Name: JACK CASTILLO Study Date: 13-Feb-2017 [id number]
[2017-02-13] MEDS: LEVOFLOXACIN 500MG/D5W (PMX) 100 ML IVPB SCH (17:19)
[2017-02-13] MEDS: GEMFIBROZIL 600 MG TAB PO SCH (17:22)
[2017-02-13] MEDS: metFORMIN 500 MG TAB PO SCH (17:22)
[2017-02-13 20:35] VITALS: BP 138/64; RESP 16
[2017-02-14] MEDS: ALBUTEROL/IPRATROPIUM (NEB) 3 ML AMP HHN SCH ×6 (00:14→20:34)
[2017-02-14] MEDS: ACCU-CHEK XX SCH (02:00)
[2017-02-14 05:55] LABS: ADD SCAN DIFF NO
[2017-02-14 05:57] LABS: BASOPHILS % 0.1 % (0.0-2.0); HEMOGLOBIN 12.9 g/dl (12.0-16.0); LYMPHOCYTES # 1.3 10^3/ul (0.8-2.9); LYMPHOCYTES % 7.5 % (15.0-51.0); MEAN CORPUSCULAR HEMOGLOBIN 29.8 pg (29.0-33.0); MEAN CORPUSCULAR HGB CONC 32.3 g/dl (32.0-37.0); MEAN CORPUSCULAR VOLUME 92.4 fl (82.0-101.0); MEAN PLATELET VOLUME 10.1 fl (7.4-10.4); MONOCYTE # 0.4 10^3/ul (0.3-0.9); MONOCYTES % 2.4 % (0.0-11.0); NEUTROPHIL # 15.4 10^3/ul (1.6-7.5); NEUTROPHILS % 89.3 % (39.0-77.0); PLATELET COUNT 241 10^3/UL (140-415); RED BLOOD COUNT 4.33 10^6/ul (4.20-5.40); RED CELL DISTRIBUTION WIDTH 13.2 % (11.5-14.5); WHITE BLOOD COUNT 17.3 10^3/ul (4.8-10.8)
[2017-02-14 06:09] LABS: PROTIME 13.2 Sec (12.2-14.2)
[2017-02-14 06:18] LABS: CALCIUM 9.3 mg/dl (8.4-10.2); CHOL/HDL RATIO 4.3 RATIO; CREATININE 0.73 mg/dl (0.44-1.00); MAGNESIUM 2.3 mg/dl (1.7-2.5); POTASSIUM 4.3 mmol/L (3.5-5.1)
[2017-02-14] MEDS: LEVOTHYROXINE 50 MCG TAB PO SCH (06:34)
[2017-02-14] MEDS: METHYLPREDNISOLONE 125 MG INJ IV SCH (06:34)
[2017-02-14 06:42] LABS: THYROID STIMULATING HORMONE 0.971 MIU/L (0.465-4.680)
[2017-02-14 07:10] VITALS: BP 119/69; RESP 20
[2017-02-14] MEDS: INSULIN ASPART [NOVOLOG] 3 ML PEN SC SCH ×4 (08:00→21:00)
[2017-02-14] MEDS: ENOXAPARIN 40 MG/0.4 ML SYG SC SCH (08:46)
[2017-02-14] MEDS: FAMOTIDINE 20 MG TAB PO SCH (08:46)
[2017-02-14] MEDS: LORATADINE 10 MG TAB PO SCH (08:46)
--- NOTE | 2017-02-14 11:19 | PN ---
Date/Time of Note Date/Time of Note DATE: 02/14/17 TIME: : Assessment/Plan VTE Prophylaxis VTE Prophylaxis Intervention: LMWH Lines/Catheters IV [facility] [place] Assessment/Plan Chief Complaint/Hosp Course S- 02/13 little less wheezing. But not walking yet. Recent cough wheezing yellow- green expectoration with no hemoptysis. No edema travel or chest pain. Sore throat but no loss of weight or change in appetite. 02/14 still has throat discomfort. But no active distress. No fever. Ambulating eating somewhat improved. O- vss PE No pallor; some slight rt pre-auricular swelling but nontender Reg, no mrg Less exp wheezing bilat. I dont appreciate any inspiratory wheezing. Benign No edema, or Homans sign A/P 1. Acute hypoxic respiratory failure. Stable cont steroids. Anticipate discharge home soon. 2. Acute exacerbation of asthma. Ro stridor. 3. Probable chr asthma/obstructive lung disease. Outpt PFTs. 4. Possible viral bronchitis. Problems: Exam/Review of Systems Vital Signs Vitals Vital Signs Date Time Temp Pulse Resp B/P Pulse Ox O2 Delivery O2 Flow Rate FiO2 02/14/17 09:00 2.0 02/14/17 09:00 85 16 98 Nasal Cannula 02/14/17 07:10 98.3 119/69 02/12/17 15:23 21 Intake and Output 02/13/17 02/13/17 02/14/17 15:00 23:00 07:00 Intake Total 930 ml Balance 930 ml Results Result Diagram: 02/14/17 0515 02/14/17 0515 Results 24 hrs Laboratory Tests Test 02/13/17 12:23 02/13/17 17:18 02/13/17 21:08 02/14/17 05:15 Bedside Glucose 430 *H 139 175 White Blood Count 17.3 #H Red Blood Count 4.33 Hemoglobin 12.9 Hematocrit 40.0 Mean Corpuscular Volume 92.4 Mean Corpuscular Hemoglobin 29.8 Mean Corpuscular Hemoglobin Concent 32.3 Red Cell Distribution Width 13.2 Platelet Count 241 Mean Platelet Volume 10.1 Neutrophils % 89.3 H Lymphocytes % 7.5 L Monocytes % 2.4 Eosinophils % 0.0 Basophils % 0.1 Nucleated Red Blood Cells % 0.0 Neutrophils # 15.4 H Lymphocytes # 1.3 Monocytes # 0.4 Eosinophils # 0.0 Basophils # 0.0 Nucleated Red Blood Cells # 0.0 Prothrombin Time 13.2 Prothrombin Time Ratio 1.0 INR International Normalized Ratio 1.00 Sodium Level 137 Potassium Level 4.3 Chloride Level 105 Carbon Dioxide Level 26 Anion Gap 10 # Blood Urea Nitrogen 25 #H Creatinine 0.73 Glucose Level 159 Hemoglobin A1c 5.9 Calcium Level 9.3 Phosphorus Level 4.0 Magnesium Level 2.3 Triglycerides Level 101 Cholesterol Level 219 H LDL Cholesterol, Calculated 149 HDL Cholesterol 50 Cholesterol/HDL Ratio 4.3 Thyroid Stimulating Hormone (TSH) 0.971 Test 02/14/17 07:51 Bedside Glucose 134 Medications Medications Current Medications Levofloxacin/ Dextrose (Levaquin 500mg/ D5W 100 ml (Pmx)) 100 ml @ 100 mls/hr Q24H IVPB Last administered on 02/13/17 17:19; Admin Dose 100 MLS/HR; Start at 17:00 Ondansetron HCl (Zofran Inj) 4 mg Q6H PRN IV NAUSEA AND/OR VOMITING; Start 02/12 at 17:00 Acetaminophen (Tylenol Tab) 650 mg Q6H PRN PO PAIN AND OR ELEVATED TEMP; Start 02/12/17 at 17:00 Famotidine (Pepcid) 20 mg BID PO Last administered on 02/14/17 08:46; Admin Dose 20 MG; Start 02/12/17 at 21:00 Enoxaparin Sodium (Lovenox) 40 mg DAILY SC Last administered on 02/14/17 08:46 ; Admin Dose 40 MG; Start 02/13/17 at 09:00 Loratadine (Claritin) 10 mg DAILY PO Last administered on 02/14/17 08:46; Admin Dose 10 MG; Start 02/13/17 at 09:00 Diagnostic Test (Pha) (Accu-Chek) 1 ea 02 XX ; Start 02/14/17 at 02:00 Miscellaneous Information 1 ea NOTE XX ; Start 02/13/17 at 06:00 Glucose (Glutose) 15 gm Q15M PRN PO DECREASED GLUCOSE; Start 02/13/17 at 06:00 Glucose (Glutose) 22.5 gm Q15M PRN PO DECREASED GLUCOSE; Start 4/10/17 at 06: 00 Dextrose (D50w Syringe) 25 ml Q15M PRN IV DECREASED GLUCOSE; Start 02/13/17 at 06:00 Dextrose (D50w Syringe) 50 ml Q15M PRN IV DECREASED GLUCOSE; Start 02/13/17 at 06:00 Glucagon (Glucagen) 1 mg Q15M PRN IM DECREASED GLUCOSE; Start 02/13/17 at 06:00 Glucose (Glutose) 15 gm Q15M PRN BUCCAL DECREASED GLUCOSE; Start 02/13/17 at 06 :00 Guaifenesin/ Codeine Phosphate (Robitussin Ac Liquid Cup) 10 ml Q4H PRN PO COUGH; Start 02/13/17 at 10:30 Methylprednisolone Sodium Succinate (Solu-Medrol) 90 mg Q8 IV Last administered on 02/14/17t 06:34; Admin Dose 90 MG; Start 02/13/17 at 14:00 HEATHER MANE MD Feb 14, 2017 11:19
--- NOTE | 2017-02-14 11:26 | CONS ---
Date/Time of Note Date/Time of Note DATE: 02/14/17 TIME: 11:24 Assessment/Plan Assessment/Plan Additional Assessment/Plan Assessment recommendations; next 1. Patient admitted for asthma exacerbation with acute bronchitis with significant clinical improvement. Next 2. History of diabetes, hypothyroidism. Decrease Solu-Medrol dosing to 40 mg every 8 hours from 90 mg every 8 hours. Continue other medications. Consultation Date/Type/Reason Admit Date/Time Feb 12, 2017 at 16:28 Initial Consult Date 02/13/17 Type of Consultation: Pulmonary 24 HR Interval Summary Free Text/Dictation Patient condition is markedly improved. Complains of very scant cough with very minimal sputum production. Wheezing has resolved. Denies any shortness of breath. General exam; elderly lady, currently in no distress awake and alert. Exam/Review of Systems Vital Signs Vitals Vital Signs Date Time Temp Pulse Resp B/P Pulse Ox O2 Delivery O2 Flow Rate FiO2 02/14/17 09:00 2.0 02/14/17 09:00 85 16 98 Nasal Cannula 02/14/17 07:10 98.3 119/69 02/12/17 15:23 21 Intake and Output 02/13/17 02/13/17 02/14/17 15:00 23:00 07:00 Intake Total 930 ml Balance 930 ml Exam HEENT exam is; supple neck, no JVD. No lymphadenopathy. Midline trachea. No thyromegaly. There was a small bilaterally. Patient has multiple missing teeth. Chest examination; diminished but clear breath sounds bilaterally. No added sound. S1-S2 audible, no murmurs. Regular rhythm. Abdomen examination; soft, nontender. No organomegaly. Bowel sounds audible. Extremity examination; no peripheral edema. STATION INSTALLER examination; no focal deficit. Results Result Diagram: 02/14/17 0515 02/14/17 0515 Results 24 hrs Laboratory Tests Test 02/13/17 12:23 02/13/17 17:18 02/13/17 21:08 02/14/17 05:15 Bedside Glucose 430 *H 139 175 White Blood Count 17.3 #H Red Blood Count 4.33 Hemoglobin 12.9 Hematocrit 40.0 Mean Corpuscular Volume 92.4 Mean Corpuscular Hemoglobin 29.8 Mean Corpuscular Hemoglobin Concent 32.3 Red Cell Distribution Width 13.2 Platelet Count 241 Mean Platelet Volume 10.1 Neutrophils % 89.3 H Lymphocytes % 7.5 L Monocytes % 2.4 Eosinophils % 0.0 Basophils % 0.1 Nucleated Red Blood Cells % 0.0 Neutrophils # 15.4 H Lymphocytes # 1.3 Monocytes # 0.4 Eosinophils # 0.0 Basophils # 0.0 Nucleated Red Blood Cells # 0.0 Prothrombin Time 13.2 Prothrombin Time Ratio 1.0 INR International Normalized Ratio 1.00 Sodium Level 137 Potassium Level 4.3 Chloride Level 105 Carbon Dioxide Level 26 Anion Gap 10 # Blood Urea Nitrogen 25 #H Creatinine 0.73 Glucose Level 159 Hemoglobin A1c 5.9 Calcium Level 9.3 Phosphorus Level 4.0 Magnesium Level 2.3 Triglycerides Level 101 Cholesterol Level 219 H LDL Cholesterol, Calculated 149 HDL Cholesterol 50 Cholesterol/HDL Ratio 4.3 Thyroid Stimulating Hormone (TSH) 0.971 Test 02/14/17 07:51 Bedside Glucose 134 Medications Medications Current Medications Levofloxacin/ Dextrose (Levaquin 500mg/ D5W 100 ml (Pmx)) 100 ml @ 100 mls/hr Q24H IVPB Last administered on 02/13/17 17:19; Admin Dose 100 MLS/HR; Start at 17:00 Ondansetron HCl (Zofran Inj) 4 mg Q6H PRN IV NAUSEA AND/OR VOMITING; Start 02/12 at 17:00 Acetaminophen (Tylenol Tab) 650 mg Q6H PRN PO PAIN AND OR ELEVATED TEMP; Start 02/12/17 at 17:00 Famotidine (Pepcid) 20 mg BID PO Last administered on 02/14/17 08:46; Admin Dose 20 MG; Start 02/12/17 at 21:00 Enoxaparin Sodium (Lovenox) 40 mg DAILY SC Last administered on 02/14/17 08:46 ; Admin Dose 40 MG; Start 02/13/17 at 09:00 Loratadine (Claritin) 10 mg DAILY PO Last administered on 02/14/17 08:46; Admin Dose 10 MG; Start 02/13/17 at 09:00 Diagnostic Test (Pha) (Accu-Chek) 1 ea 02 XX ; Start 02/14/17 at 02:00 Miscellaneous Information 1 ea NOTE XX ; Start 02/13/17 at 06:00 Glucose (Glutose) 15 gm Q15M PRN PO DECREASED GLUCOSE; Start 02/13/17 at 06:00 Glucose (Glutose) 22.5 gm Q15M PRN PO DECREASED GLUCOSE; Start 02/13/17 at 06: 00 Dextrose (D50w Syringe) 25 ml Q15M PRN IV DECREASED GLUCOSE; Start 02/13/17 at 06:00 Dextrose (D50w Syringe) 50 ml Q15M PRN IV DECREASED GLUCOSE; Start 02/13/17 at 06:00 Glucagon (Glucagen) 1 mg Q15M PRN IM DECREASED GLUCOSE; Start 02/13/17 at 06:00 Glucose (Glutose) 15 gm Q15M PRN BUCCAL DECREASED GLUCOSE; Start 02/13/17 at 06 :00 Guaifenesin/ Codeine Phosphate (Robitussin Ac Liquid Cup) 10 ml Q4H PRN PO COUGH; Start 02/13/17 at 10:30 Methylprednisolone Sodium Succinate (Solu-Medrol) 90 mg Q8 IV Last administered on 02/14/17 06:34; Admin Dose 90 MG; Start 02/13/17 at 14:00 MICHELLE ROOT Feb 14, 2017 11:26
[2017-02-14] MEDS ORDERED: CEPASTAT LOZENGE MT PRN (11:30)
[2017-02-14] MEDS ORDERED: BISACODYL (EC) 5 MG TAB PO ONE (11:30)
[2017-02-14] MEDS ORDERED: DOCUSATE SODIUM 100 MG CAP PO PRN (11:30)
[2017-02-14] MEDS: LEVOFLOXACIN 500 MG TAB PO SCH (12:20)
[2017-02-14] MEDS: METHYLPREDNISOLONE 40 MG INJ IV SCH ×2 (14:11→22:06)
[2017-02-14] MEDS: GEMFIBROZIL 600 MG TAB PO SCH (17:37)
[2017-02-14] MEDS: metFORMIN 500 MG TAB PO SCH (17:37)
--- NOTE | 2017-02-14 18:28 | RADRPT ---
Vent Rate: 93 bpm RR Interval: 0 msec [place] Interval: 144 msec QRS Duration: 72 msec QT Interval: 352 msec QTC Interval: 437 msec P-R-T [place]: 60 - 41 - 62 degrees Normal sinus rhythm Normal ECG Electronically Signed By: Aryan Hearn [id number]
[2017-02-14 20:20] VITALS: BP 120/58; RESP 20
[2017-02-15] MEDS: ACCU-CHEK XX SCH (01:47)
[2017-02-15] MEDS: ALBUTEROL/IPRATROPIUM (NEB) 3 ML AMP HHN SCH ×3 (02:33→14:15)
[2017-02-15] MEDS: LEVOFLOXACIN 500 MG TAB PO SCH (06:09)
[2017-02-15] MEDS: LEVOTHYROXINE 50 MCG TAB PO SCH (06:09)
[2017-02-15] MEDS: METHYLPREDNISOLONE 40 MG INJ IV SCH ×2 (06:09→14:03)
[2017-02-15] MEDS: INSULIN ASPART [NOVOLOG] 3 ML PEN SC SCH ×3 (07:42→17:38)
[2017-02-15] MEDS: LORATADINE 10 MG TAB PO SCH (08:15)
[2017-02-15] MEDS: ENOXAPARIN 40 MG/0.4 ML SYG SC SCH (08:20)
[2017-02-15 08:24] LABS: ADD SCAN DIFF NO
[2017-02-15 08:28] VITALS: BP 123/59; RESP 20
[2017-02-15 08:33] LABS: BASOPHILS % 0.1 % (0.0-2.0); EOSINOPHILS % 0.1 % (0.0-7.0); HEMATOCRIT 41.6 % (37.0-47.0); HEMOGLOBIN 13.5 g/dl (12.0-16.0); LYMPHOCYTES # 1.5 10^3/ul (0.8-2.9); LYMPHOCYTES % 10.1 % (15.0-51.0); MEAN CORPUSCULAR HEMOGLOBIN 29.9 pg (29.0-33.0); MEAN CORPUSCULAR HGB CONC 32.5 g/dl (32.0-37.0); MEAN PLATELET VOLUME 9.8 fl (7.4-10.4); MONOCYTE # 0.5 10^3/ul (0.3-0.9); MONOCYTES % 3.3 % (0.0-11.0); NEUTROPHILS % 85.8 % (39.0-77.0); PLATELET COUNT 277 10^3/UL (140-415); RED BLOOD COUNT 4.52 10^6/ul (4.20-5.40); RED CELL DISTRIBUTION WIDTH 13.2 % (11.5-14.5); WHITE BLOOD COUNT 15.2 10^3/ul (4.8-10.8)
[2017-02-15 08:45] LABS: CALCIUM 9.3 mg/dl (8.4-10.2); CREATININE 0.74 mg/dl (0.44-1.00); POTASSIUM 4.9 mmol/L (3.5-5.1)
[2017-02-15] MEDS ORDERED: FAMOTIDINE 20 MG TAB PO SCH (09:00)
--- NOTE | 2017-02-15 14:26 | CONS ---
Date/Time of Note Date/Time of Note DATE: 02/15/17 TIME: 14:24 Assessment/Plan Assessment/Plan Additional Assessment/Plan Assessment recommendations; 1. Patient admitted for asthma exacerbation with acute bronchitis with marked clinical improvement. 2. History of hypertension or diabetes. Discontinue Solu-Medrol. Start the patient on prednisone 40 mg daily to be tapered down in 24 hours as tolerated. Consultation Date/Type/Reason Admit Date/Time Feb 14, 2017 at 10:24 Initial Consult Date 02/13/17 Type of Consultation: Pulmonary 24 HR Interval Summary Free Text/Dictation Patient condition is markedly improved. Denies any shortness of breath, couple of very scant cough denies any sputum production and wheezing. Exam; elderly woman, currently in no distress awake and alert. Exam/Review of Systems Vital Signs Vitals Vital Signs Date Time Temp Pulse Resp B/P Pulse Ox O2 Delivery O2 Flow Rate FiO2 02/15/17 14:16 83 17 96 Nasal Cannula 2.0 02/15/17 08:28 98.0 123/59 02/14/17 20:35 21 Intake and Output 02/14/17 02/14/17 02/15/17 15:00 23:00 07:00 Intake Total 700 ml 400 ml Balance 700 ml 400 ml Exam HEENT exam; supple neck, no JVD. No lymphadenopathy. Midline trachea. No thyromegaly. Pharynx is clear. Chest exam; clear to auscultation. No additional. S1-S2 audible, no murmur. Regular rhythm. Abdomen examination; soft, nondistended. No organomegaly. Bowel sounds audible. Extremity exam is regular no peripheral edema. Pulses 1+ bilaterally. No clubbing. CORRUGATOR SUPERVISOR exam ; no focal deficit. Results Result Diagram: 02/15/17 0802/15/17 0800 Results 24 hrs Laboratory Tests Test 02/14/17 17:03 02/14/17 22:00 02/15/17 07:41 02/15/17 08:00 Bedside Glucose 142 142 118 White Blood Count 15.2 H Red Blood Count 4.52 Hemoglobin 13.5 Hematocrit 41.6 Mean Corpuscular Volume 92.0 Mean Corpuscular Hemoglobin 29.9 Mean Corpuscular Hemoglobin Concent 32.5 Red Cell Distribution Width 13.2 Platelet Count 277 Mean Platelet Volume 9.8 Neutrophils % 85.8 H Lymphocytes % 10.1 L Monocytes % 3.3 Eosinophils % 0.1 Basophils % 0.1 Nucleated Red Blood Cells % 0.0 Neutrophils # 13.0 H Lymphocytes # 1.5 Monocytes # 0.5 Eosinophils # 0.0 Basophils # 0.0 Nucleated Red Blood Cells # 0.0 Sodium Level 137 Potassium Level 4.9 Chloride Level 103 Carbon Dioxide Level 28 Anion Gap 11 Blood Urea Nitrogen 26 H Creatinine 0.74 Glucose Level 133 Calcium Level 9.3 Test 02/15/17 11:57 Bedside Glucose 148 Medications Medications Current Medications Ondansetron HCl (Zofran Inj) 4 mg Q6H PRN IV NAUSEA AND/OR VOMITING; Start 02/12 at 17:00 Acetaminophen (Tylenol Tab) 650 mg Q6H PRN PO PAIN AND OR ELEVATED TEMP; Start 02/12/17 at 17:00 Enoxaparin Sodium (Lovenox) 40 mg DAILY SC Last administered on 02/15/17 08:20 ; Admin Dose 40 MG; Start 02/13/17 at 09:00 Loratadine (Claritin) 10 mg DAILY PO Last administered on 02/15/17 08:15; Admin Dose 10 MG; Start 02/13/17 at 09:00 Diagnostic Test (Pha) (Accu-Chek) 1 ea 02 XX ; Start 02/14/17 at 02:00 Miscellaneous Information 1 ea NOTE XX ; Start 02/13/17 at 06:00 Glucose (Glutose) 15 gm Q15M PRN PO DECREASED GLUCOSE; Start 02/13/17 at 06:00 Glucose (Glutose) 22.5 gm Q15M PRN PO DECREASED GLUCOSE; Start 02/13/17 at 06: 00 Dextrose (D50w Syringe) 25 ml Q15M PRN IV DECREASED GLUCOSE; Start 02/13/17 at 06:00 Dextrose (D50w Syringe) 50 ml Q15M PRN IV DECREASED GLUCOSE; Start 02/13/17 at 06:00 Glucagon (Glucagen) 1 mg Q15M PRN IM DECREASED GLUCOSE; Start 02/13/17 at 06:00 Glucose (Glutose) 15 gm Q15M PRN BUCCAL DECREASED GLUCOSE; Start 02/13/17 at 06 :00 Guaifenesin/ Codeine Phosphate (Robitussin Ac Liquid Cup) 10 ml Q4H PRN PO COUGH; Start 02/13/17 at 10:30 Famotidine (Pepcid) 20 mg DAILY PO Last administered on 02/15/17 08:15; Admin Dose 20 MG; Start 02/15/17 at 09:00 Levofloxacin (Levaquin) 500 mg DAILY@06 PO Last administered on 02/15/17 06:09 ; Admin Dose 500 MG; Start 02/14/17 at 12:00 Docusate Sodium (Colace) 200 mg BID PRN PO CONSTIPATION Last administered on 22:06; Admin Dose 200 MG; Start 02/14/17 at 11:30 Phenol (Cepastat Lozenge) 1 lozenge Q1H PRN MT SORE THROAT; Start 02/14/17 at 11:30 MICHELLE ROOT Feb 15, 2017 14:26
[2017-02-15] MEDS ORDERED: predniSONE 20 MG TAB PO SCH ×2 (14:30→21:00)
--- NOTE | 2017-02-15 16:00 | PDOCDIS ---
Discharge Instructions DIAGNOSIS Discharge Diagnosis: asthma CONDITION Patient Condition: Stable HOME CARE INSTRUCTIONS: Special Diet: Low chol/low fat ACTIVITY: Activity Restrictions: Slowly Increase Activity Do not Drive FOLLOW UP/APPOINTMENTS Appointments pcp 1wk Pul Dr Pierson -1-2 months. HEATHER MANE MD Feb 15, 2017 16:00
[2017-02-15] MEDS ORDERED: LEVO500T10 PO (16:02)
[2017-02-15] MEDS ORDERED: ALBU18HF INH (16:02)
[2017-02-15] MEDS ORDERED: UDROBAC PO (16:02)
--- NOTE | 2017-02-15 16:36 | DS ---
DATE OF ADMISSION: 02/14/2017 DATE OF DISCHARGE: 02/15/2017 PRIMARY CARE PHYSICIAN: Unknown. ASSISTANT PROFESSOR OF CHEMISTRY: Dr. Sukhjinder Root. DIAGNOSIS ON ADMISSION: 1. History of asthma. 2. Diabetes. 3. Dyslipidemia. 4. Hypothyroidism. 5. Metabolic syndrome. HOSPITAL COURSE: A 76-year-old female admitted with asthma. This seems to be improving with suppor tive care. Chest x-ray fairly unremarkable, potentially has bronchitis. Presently stable and fit f or discharge on prednisone taper. May need ___ therapy or outpatient PFTs, vaccines as appropriate, etc. DISCHARGE PLAN: Home. Followup: 1. With primary in 1 week. 2. Pulmonary in 1 to 2 months. Consider PFTs. DIET: 1800 ADA. ACTIVITY: No heavy lifting. DURABLE MEDICAL EQUIPMENT: None. CODE STATUS: FULL CONDITION: Stable. BARRIERS TO DISCHARGE: None. PENDING TESTS: None. FUNCTIONAL STATUS: The patient is awake, alert agrees with the plan of care. CONDITION: Good. ALLERGIES: NO KNOWN DRUG ALLERGIES. REASON FOR ADMISSION: Asthma. CONTINUED MEDICATIONS: 1. Gemfibrozil 600 daily. 2. Synthroid 50 mcg. 3. Loratadine 10. 4. Metformin 250. NEW MEDICATIONS: 1. Albuterol MDI 2 puffs q.6h. needed. 2. Robitussin as needed. 3. Levaquin 500 daily. 3. Prednisone script given 40 mg daily for 3 days, next 20, then 10 then 5 to be tapered every thir d day and then to stop. IMAGING STUDIES: Chest x-ray: No acute process. LABORATORY DATA: CMP unremarkable. Troponins negative. A1c of 5.9. Total cholesterol 219, trigly cerides 101, LDL of 149, HDL 50. TSH is 0.9. EKG: Sinus rhythm. INR 1. White cell count of 15, hemoglobin and hematocrit of 13 and 41, platelets of 277. Dictated By: HEATHER MANE MD AC/NTS Conf#: [id number] DID#: [id number] CC: SUKHJINDER ROOT MD;*EndCC*
[2017-02-15] MEDS: GEMFIBROZIL 600 MG TAB PO SCH (17:41)
[2017-02-15] MEDS: metFORMIN 500 MG TAB PO SCH (17:42)
[2017-02-15 18:35] VITALS: BP 134/60; PULSE 80; RESP 18
[2017-02-15] MEDS ORDERED: ALBUTEROL 18 GM INHALER INH SCH (20:00)
== END 2017-02-15 20:03 | disposition home or self-care (01) | DRG 192 ==
LOC: FTE 10:35 → PP2 16:28 → OBSVTOIN 02-14 10:24
PROVIDERS: ADMIT Family Medicine; ATTEND Family Medicine
DX: J44.1 Chronic obstructive pulmonary disease with (acute) exacerbation (principal); E88.81 Metabolic syndrome and other insulin resistance; E11.9 Type 2 diabetes mellitus without complications; J20.9 Acute bronchitis, unspecified; R00.0 Tachycardia, unspecified; I10 Essential (primary) hypertension; E03.9 Hypothyroidism, unspecified; E78.5 Hyperlipidemia, unspecified
CPT/HCPCS: 71010; 80048; 80053; 80061; 82306; 82550; 82553; 82962; 83036; 83735; 84100; 84443; 84484; 85025; 85610; 93005; 93306; 94640; 94644; 94645; 94664; 96365; 96375; G0378; J1650; J1815; J1956; J2920; J2930; J3475; J7030; J7512